=== PATIENT | female | born 1935 | race African-American/Black ===

== ENCOUNTER 2018-04-14 22:40 | Emergency (ER) | payer MEDICARE, OTHER ==
[~2018-04-14] VITALS: Ht 154.9 cm; Wt 63.5 kg
[2018-04-14 22:46] VITALS: BP 165/83
--- NOTE | 2018-04-14 23:08 | PHYS DOC ---
Adult General Chief Complaint Chief Complaint: ANKLE PROBLEM HPI HPI Patient is a 82 year old AA female who presents to the ER with complaints of left ankle pain and left foot pain with weight bearing since yesterday. She denies any known injury. States she has had a rough area on her left heel for the last year after being in a rehabilitation facility. She denies any numbness or tingling. Currently, the patient rates her pain at 10 out of 10 on the pain scale. Pt states the pain is sharp, constant, shooting pain. Nothing makes the pain better, however weight bearing increases the pain. She took an oxycontin this morning for the pain and it did not help to reduce the severity. Review of Systems Review of Systems Constitutional: Denies fever or chills [] Musculoskeletal: Denies back pain reports left ankle and foot pain x2 days with no known injury Integument: Denies rash or skin lesions [] Neurologic: Denies focal weakness or sensory changes [] All other systems were reviewed and found to be within normal limits, except as documented in this note. Current Medications Current Medications Current Medications Medications (Trade) Dose Ordered Sig/Pau Start Time Stop Time Status Last Admin Dose Admin Acetaminophen/ Hydrocodone Bitart (Lortab 5/325) 1 tab 1X ONCE 04/15/18 00:00 04/15/18 00:00 DC Allergies Allergies Allergies Coded Allergies Type Severity Reaction Last Updated Verified No Known Drug Allergies 04/14/18 No Physical Exam Physical Exam Constitutional: Well developed, well nourished, no acute distress, non-toxic appearance. [] HENT: Normocephalic, atraumatic, bilateral external ears normal, oropharynx moist, no oral exudates, nose normal. [] Eyes: PERRLA, EOMI, conjunctiva normal, no discharge. [] Skin: Warm, dry, no erythema, no rash. [] Extremities: No cyanosis, no clubbing, ROM intact, mild edema to left ankle, pt reports tenderness to mid foot and lateral ankle with palpation and weight bearing Neurologic: Alert and oriented X 3, normal motor function, normal sensory function, no focal deficits noted. [] Psychologic: Affect normal, judgement normal, mood normal. [] Current Patient Data Vital Signs Vital Signs Date Time Temp Pulse Resp B/P (MAP) Pulse Ox O2 Delivery O2 Flow Rate FiO2 04/14/18 22:46 98.9 83 20 165/83 (110) 96 Room Air 98.9 EKG EKG [] Radiology/Procedures Radiology/Procedures L foot and L ankle x-ray negative for acute findings, degenerative changes present and heel spur noted to left foot as read by Dr. Siegel [] Course & Med Decision Making Course & Med Decision Making Pertinent Labs and Imaging studies reviewed. (See chart for details) dx: left ankle, left foot pain, left heel spur Prescription written for norco 5/325 mg tablets #12, leonidas wrap and post op shoe provided. Follow up with primary care doctor or podiatry for further treatment. Return to ER if worse. Patient verbalized an understanding of home care, medications, follow-up, and return to ED instructions and was in agreement with the plan of care. [] Dragon Disclaimer Dragon Disclaimer This electronic medical record was generated, in whole or in part, using a voice recognition dictation system. Departure Departure Impression: Primary Impression: Left ankle pain Additional Impressions: Heel spur Left foot pain Disposition: HOME, SELF-CARE Condition: STABLE Referrals: UNKNOWN PCP NAME (PCP) Patient Instructions: Ankle Pain Additional Instructions: Fill prescription(s) and use as directed. Recommend application of ice, elevation, and rest of affected extremity. Wear the leonidas wrap that was placed and post-op shoe until follow up appointment. Follow up with your primary care doctor or bike mechanic next week. Return to the ER if your symptoms worsen. Scripts Hydrocodone Bit/Acetaminophen (HYDROCODONE-APAP 5-325 ) 1 Each Tablet 1 TAB PO PRN Q6HRS PRN for PAIN for 3 Days, #12 TAB 0 Refills Prov: ROSE TALAMANTES APRN 04/14/18 Problem Qualifiers Primary Impression: Left ankle pain Chronicity: unspecified Qualified Codes: M25.572 - Pain in left ankle and joints of left foot Additional Impressions: Heel spur Laterality: left Qualified Codes: M77.32 - Calcaneal spur, left foot ROSE TALAMANTES APRN Apr 14, 2018 23:08
[2018-04-14] MEDS ORDERED: HYDR-2758 PO (23:39)
[2018-04-15] MEDS ORDERED: HYDROcodone/APAP 5/325MG 1 TAB TABLET PO ONE
--- NOTE | 2018-04-15 08:16 | RAD ---
Examination: 3 views of the left ankle and left foot HISTORY: History of pain, swelling COMPARISON: None available FINDINGS: The alignment of the ankle mortise grossly appears unremarkable. There is mild soft tissue swelling identified about the ankle joint. Diffuse osseous demineralization. The alignment of the tarsal bones grossly appears unremarkable. Moderate degenerative changes identified in the tarsal joints, tarsometatarsal joints and the first metatarsophalangeal joint. IMPRESSION: 1. Examination limited due to osseous demineralization. 2. 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 Electronically signed by: Abdulkadir Shay MD (04/15/2018 8:13 AM) [facility]
== END 2018-04-15 | disposition home or self-care (01) ==
LOC: ER 22:40
DX: M77.32 Calcaneal spur, left foot (principal)
CPT/HCPCS: 73610; 73630; 99284